=== PATIENT | female | born 1980 | race Caucasian/White ===

== ENCOUNTER 2016-04-26 15:03 | Emergency (ER) | payer OTHER ==
[~2016-04-26] VITALS: Ht 160 cm; Wt 90.0 kg
[~2016-04-26 15:03] MED LIST: ACETAMINOPHN-T1 EACH PO; ADDERALL XR; ADVAIR 100-501 EACH IH; ADVAIR 100/501 DISK IH; ALBUTEROL17 GM IH; AMOXICILLIN500 M1 PO; AMOXICILLIN500 MG PO; ATARAX,VISTARIL25 MG PO; ATARAX10 MG PO; AUGMENTIN875 MG PO; BENADRYL25 MG PO; BENTYL20 MG PO; BONINE25 MG PO; Bariatric vitamin PO; CALCIUM ANTAC1000 MG PO; CARBAMAZEPINE400 MG PO; CATAPRES0.2 MG PO; CELEXA20 MG PO; CEPHALEXIN500 MG PO; CHEWABLE MULTI1 EACH PO; CIPRO500 MG PO; CITALOPRAM HBR20 MG PO; CLONIDINE HCL0.1 MG PO; CROMOLYN S20 MG/2 ML PO; CYANOCOBAL1000 MCG/2 IM; DESYREL100 MG PO; DIAMOX250 MG PO; DICLOFENAC SODI75 MG; DICLOFENAC SODI75 MG PO; DIFLUCAN150 MG PO; DILAUDID2 MG PO; DIOVAN40 MG PO; EFFEXOR XR37.5 MG PO; EFFEXOR75 MG PO; ENDOCET 5-3251 EACH PO; EPIPEN ADU0.3 MG/0.3 IM; FERROUS SULFAT325 MG PO; FIORICET 50-301 EACH PO; FIORICET,ESG1 TABLET PO; FLEXERIL10 MG PO; FLOMAX0.4 MG PO; FORTAMET500 MG PO; GABAPENTIN600 MG PO; GLUCOPHAGE500 MG PO; HYDROXYZINE PAM25 MG PO; INDOCIN25 MG PO; INTAL PO; IRON325 M1 PO; IRON325 MG PO; KEFLEX500 MG PO; KLONOPIN0.5 M1 PO; KLONOPIN1 MG PO; LEVAQUIN750 MG PO; LIQUID B-11000 MCG/1 SC; LODINE400 MG PO; LOVENOX40 MG/0.4 PO; MELATONIN1 MG PO; MELATONIN10 M1 PO; MELATONIN10 M2 PO; METAMUCIL PACKE1 PKT PO; METFORMIN HCL1000 MG PO; METOPROLOL SUCC25 MG PO; METOPROLOL SUCC50 MG PO; MIGRAINE RELIE1 EAC2 PO; MINIPRESS1 MG PO; MOBIC7.5 MG PO; MOTRIN IB200 MG PO; MOTRIN600 MG PO; NAPROSYN-EC500 MG PO; NAPROSYN500 MG PO; NAPROXEN SODIU550 MG PO; NEBULIZER1 EAC1 MC; NEURONTIN600 MG PO; NIZORAL 2% CREA15 GM TP; OMEPRAZOLE20 M2 PO; OMEPRAZOLE20 MG PO; OMEPRAZOLE40 M1 PO; OPANA ER5 MG PO; OXCARBAZEPINE300 MG PO; OXYCODONE HCL10 MG PO; OXYCODONE-APAP1 EACH PO; OXYCODONE5 MG PO; PEN-VEE K,VEET250 MG PO; PEN-VEE K,VEET500 MG PO; PEPCID20 MG PO; PERCOCET 10/1 TABLET PO; PERCOCET 5/31 TABLET PO; PRAZOSIN HCL1 MG PO; PREDNISONE10 MG PO; PREDNISONE20 MG PO; PREVACID30 MG PO; PRILOSEC OTC20 MG PO; PRILOSEC40 MG PO; PROMETHAZINE HC25 M1 PO; PROVENTIL HFA6.7 GM IH; PROVERA,CYCRIN10 MG PO; PriLOSEC PO; REGLAN10 MG PO; REGLAN5 MG PO; ROBITUSSIN100 MG/5 M PO; ROPINIROLE HCL0.5 MG PO; SLEEP AID25 M1 PO; SLEEP AID50 MG PO; TEGRETOL-XR,CA200 MG PO; TEGRETOL-XR,CA400 MG PO; TEGRETOL100 MG PO; TEGRETOL200 MG; TEMAZEPAM15 MG PO; TIZANIDINE HCL4 MG PO; TOPAMAX50 MG PO; TOPIRAMATE25 MG PO; TOPROL XL50 MG PO; TRAMADOL HCL50 MG PO; TRAZODONE HCL50 MG PO; TYLENOL REGULA325 MG PO; TYLENOL WITH C1 EACH PO; ULTRACET1 TABLET PO; ULTRAM50 MG PO; VALIUM2 MG PO; VALIUM5 MG PO; VENLAFAXINE HCL75 M3 PO; VENTOLIN HFA18 GM IH; VIIBRYD40 MG PO; VISTARIL50 MG PO; VITAMIN D-3 401 EACH PO; VITAMIN D400 INTUNI PO; VITAMIN D400 UNI1 PO; VITAMIN D400 UNIT PO; Vitamin B12; XANAX0.25 MG PO; XANAX0.5 MG PO; ZITHROMAX Z-PA250 MG PO; ZOFRAN ODT4 MG PO; ZOFRAN ODT8 MG PO; ZOFRAN4 MG PO; ZZZQUIL25 MG PO; [UNRECOGNIZED DRUG - OTHER] PO
[2016-04-26] MEDS ORDERED: OXYCODONE HCL10 MG PO (15:33)
[2016-04-26] MEDS ORDERED: OMEPRAZOLE20 M2 PO (15:33)
[2016-04-26] MEDS ORDERED: ROPINIROLE HCL0.5 MG PO (15:33)
[2016-04-26] MEDS ORDERED: MOBIC7.5 MG PO (17:39)
[2016-04-26 18:05] VITALS: BP 141/86
== END 2016-04-26 18:07 | disposition home or self-care (01) ==
LOC: EME 15:03
PROC: 2W3TX1Z Immobilization of Left Foot using Splint (ICD-10-PCS; principal; 2016-04-26)
DX: S92.515A Nondisplaced fracture of proximal phalanx of left lesser toe(s), initial encounter for closed fracture (principal); X50.9XXA Other and unspecified overexertion or strenuous movements or postures, initial encounter; Y92.000 Kitchen of unspecified non-institutional (private) residence as the place of occurrence of the external cause
CPT/HCPCS: 73630; 99281; 99283

== ENCOUNTER 2016-04-28 13:12 | Inpatient (IN) | payer OTHER ==
[~2016-04-28] VITALS: Ht 160 cm; Wt 92.1 kg
[2016-04-28 14:21] LABS: EOSINOPHIL (%) 0.1 % (0-5); HEMATOCRIT 35.5 % (36.0-46.0); IMMATURE GRANULOCYTE (%) 0.2 % (0.0-0.7); IMMATURE GRANULOCYTE COUNT 0.2 K/uL; LYMPHOCYTE COUNT 1.4 K/uL (1.0-2.8); MCH 28.2 PG (29.0-34.0); MCHC 32.1 G/DL (30.0-36.0); MCV 87.9 FL (83-99); MEAN PLAT.VOLUME 9.9 uM^3 (9.5-12.4); MONOCYTE (%) 4.7 % (3-12); MONOCYTE COUNT 0.4 K/uL (0-0.8); NEUTROPHIL (%) 77.8 % (45-76); NEUTROPHIL COUNT 6.4 K/uL (1.8-6.4); PLATELET COUNT 213 K/uL (156-360); RBC DIS.WIDTH-CV 12.8 % (11.8-14.6); RBC DIS.WIDTH-SD 40.3 % (39-53); RED BLOOD COUNT 4.04 M/uL (3.80-5.20); WHITE BLOOD COUNT 8.2 K/uL (4.1-10.2)
[2016-04-28 14:32] LABS: CHLORIDE 108 mEq/L (99-109); POTASSIUM 3.5 mEq/L (3.7-5.4); SODIUM 139 mEq/L (136-147)
[2016-04-28 14:34] LABS: GLUCOSE 87 mg/dL (70-99)
[2016-04-28 14:35] LABS: ANION GAP 8 MEQ/L (2-14)
[2016-04-28 14:36] LABS: TOTAL BILIRUBIN 0.5 mg/dL (0.0-1.0)
[2016-04-28 14:37] LABS: SERUM ETHYL ALCOHOL < 10 mg/dL
[2016-04-28 14:38] LABS: GFR ESTIMATE (CALCULATED) > 59 mL/min/
[2016-04-28 14:39] LABS: ALKALINE PHOSPHATASE 135 IU/L (3-129)
[2016-04-28 14:40] LABS: UREA NITROGEN (BUN) 5 mg/dL (9-23)
[2016-04-28 14:41] LABS: SALICYLATE < 5.0 MG/DL (15-30)
[2016-04-28 14:48] LABS: QUANTITATIVE HCG < 4.0 MIU/ML
[2016-04-28 15:59] LABS: COCAINE NEGATIVE (150 ng/mL); METHAMPHETAMINE NEGATIVE (500 ng/mL); PHENCYCLIDINE NEGATIVE (25 ng/mL); THC CANNABINOIDS NEGATIVE (50 ng/mL)
[2016-04-28 16:00] LABS: ADD MEDTOX COMMENT Y; AMPHETAMINE NEGATIVE (500 ng/mL); BARBITURATES NEGATIVE (200 ng/mL); BENZODIAZEPINES PRESUMPTIVE POSITIVE (150 ng/mL); INTERNAL CONTROLS VALID? YES; METHADONE NEGATIVE (200 ng/mL); OPIATES (MORPHINE) PRESUMPTIVE POSITIVE (100 ng/mL); OXYCODONE NEGATIVE (100 ng/mL); PROPOXYPHENE NEGATIVE (300 ng/mL); TRICYCLIC ANTIDEPRESSANTS NEGATIVE (300 ng/mL)
[2016-04-28 16:38] LABS: BENZODIAZEPINES QUANT VALUE 0 NG/ML; OPIATES QUANTITATIVE VALUE 0 NG/ML
[2016-04-28 16:40] LABS: BENZODIAZEPINES, URINE SCREEN Negative (200 ng/mL)
[2016-04-28] MEDS ORDERED: EFFEXOR XR75 MG PO (17:43)
[2016-04-28] MEDS ORDERED: XANAX1 MG PO (17:44)
[2016-04-28] MEDS ORDERED: TOPAMAX100 MG PO (17:45)
[2016-04-28] MEDS ORDERED: PRILOSEC20 MG PO (17:45)
[2016-04-28 20:58] VITALS: BP 156/79
[2016-04-29 08:00] VITALS: BP 138/87
[2016-04-29 16:26] VITALS: BP 160/102
[2016-04-30 07:43] VITALS: BP 125/72
[2016-04-30 15:27] VITALS: BP 117/62
[2016-05-01 08:00] VITALS: BP 131/67
[2016-05-01 15:13] VITALS: BP 123/81
[2016-05-02 07:24] VITALS: BP 140/75
[2016-05-02 15:35] VITALS: BP 133/85
[2016-05-03 08:03] VITALS: BP 116/58
[2016-05-03 16:06] VITALS: BP 132/71
[2016-05-04 07:47] VITALS: BP 109/55
[2016-05-04] MEDS ORDERED: TOPIRAMATE100 MG PO (11:22)
[2016-05-04] MEDS ORDERED: FLUOXETINE HCL20 MG PO (11:22)
[2016-05-04] MEDS ORDERED: ALPRAZOLAM1 MG PO (11:22)
[2016-05-04] MEDS ORDERED: PANTOPRAZOLE SO40 MG PO (11:22)
[2016-05-04] MEDS ORDERED: MELOXICAM7.5 MG PO (11:22)
[2016-05-04] MEDS ORDERED: GABAPENTIN600 MG PO (11:22)
[2016-05-04] MEDS ORDERED: BUTALB-APAP-CA1 EACH PO (11:22)
[2016-05-04] MEDS ORDERED: METOPROLOL SUCC50 MG PO (11:22)
[2016-05-04] MEDS ORDERED: OXCARBAZEPINE300 MG PO (11:22)
== END 2016-05-04 13:58 | disposition home or self-care (01) | DRG 885 ==
LOC: EME → EDBD 13:12 → EME 13:12 → 1WEST 16:46 → EDOF 16:46 → 1WEST 20:26
PROVIDERS: Emergency Medicine
DX: F31.4 Bipolar disorder, current episode depressed, severe, without psychotic features (principal); J45.909 Unspecified asthma, uncomplicated; E11.9 Type 2 diabetes mellitus without complications; K21.9 Gastro-esophageal reflux disease without esophagitis; I10 Essential (primary) hypertension; G89.29 Other chronic pain; T43.212A Poisoning by selective serotonin and norepinephrine reuptake inhibitors, intentional self-harm, initial encounter
CPT/HCPCS: 80053; 84702; 84999; 85025; 90839; 93005; 97150 GO; 97165 GO; 97530 GO; 99281; 99285; G0480

== ENCOUNTER 2017-01-01 15:33 | Emergency (ER) | payer OTHER ==
[~2017-01-01] VITALS: Ht 165.1 cm; Wt 100.1 kg
[~2017-01-01 15:33] MED LIST changes: +ALPRAZOLAM1 MG PO; +BUTALB-APAP-CA1 EACH PO; +EFFEXOR XR75 MG PO; +FLUOXETINE HCL20 MG PO; +MELOXICAM7.5 MG PO; +PANTOPRAZOLE SO40 MG PO; +PRILOSEC20 MG PO; +TOPAMAX100 MG PO; +TOPIRAMATE100 MG PO; +XANAX1 MG PO
[2017-01-01] MEDS ORDERED: INDOCIN50 MG PO (17:51)
[2017-01-01] MEDS ORDERED: AUGMENTIN875 MG PO (17:52)
[2017-01-01 18:26] VITALS: BP 171/103
== END 2017-01-01 18:27 | disposition home or self-care (01) ==
LOC: EME 15:33
PROC: 2W3CX1Z Immobilization of Right Lower Arm using Splint (ICD-10-PCS; principal; 2017-01-01)
DX: S01.511A Laceration without foreign body of lip, initial encounter (principal); S00.83XA Contusion of other part of head, initial encounter; S60.221A Contusion of right hand, initial encounter; S66.911A Strain of unspecified muscle, fascia and tendon at wrist and hand level, right hand, initial encounter; Y04.2XXA Assault by strike against or bumped into by another person, initial encounter; Y07.03 Male partner, perpetrator of maltreatment and neglect; R42 Dizziness and giddiness; Z98.84 Bariatric surgery status
CPT/HCPCS: 73110; 73130; 99281; 99284

== ENCOUNTER 2017-04-04 11:24 | Emergency (ER) | payer OTHER ==
[~2017-04-04] VITALS: Ht 162.6 cm; Wt 97.0 kg
[~2017-04-04 11:24] MED LIST changes: +INDOCIN50 MG PO
[2017-04-04] MEDS ORDERED: MOTRIN800 MG PO (13:37)
[2017-04-04 13:48] VITALS: BP 154/91
== END 2017-04-04 13:52 | disposition home or self-care (01) ==
LOC: EME 11:24
DX: S90.31XA Contusion of right foot, initial encounter (principal); W23.0XXA Caught, crushed, jammed, or pinched between moving objects, initial encounter; Y92.810 Car as the place of occurrence of the external cause; I10 Essential (primary) hypertension; F32.9 Major depressive disorder, single episode, unspecified; Z91.040 Latex allergy status; Z88.6 Allergy status to analgesic agent; Z88.5 Allergy status to narcotic agent; Z88.8 Allergy status to other drugs, medicaments and biological substances
CPT/HCPCS: 73610; 73630; 99281; 99284

== ENCOUNTER 2017-04-13 13:34 | Emergency (ER) | payer OTHER ==
[~2017-04-13] VITALS: Ht 162.6 cm; Wt 99.0 kg
[~2017-04-13 13:34] MED LIST changes: +MOTRIN800 MG PO
[2017-04-13 14:52] VITALS: BP 137/89
== END 2017-04-13 18:25 | disposition left against medical advice (07) ==
LOC: EME 13:34
DX: M79.604 Pain in right leg (principal); M79.605 Pain in left leg; Z53.21 Procedure and treatment not carried out due to patient leaving prior to being seen by health care provider

== ENCOUNTER 2017-07-22 12:18 | Emergency (ER) | payer OTHER ==
[~2017-07-22] VITALS: Ht 160 cm; Wt 86.4 kg
[2017-07-22] MEDS ORDERED: MOTRIN800 MG PO (13:26)
[2017-07-22] MEDS ORDERED: FLEXERIL10 MG PO (13:26)
[2017-07-22] MEDS ORDERED: LIDODERM 5% P1 PATCH TD (13:26)
[2017-07-22 13:38] VITALS: BP 147/100
== END 2017-07-22 13:41 | disposition home or self-care (01) ==
LOC: EME 12:18
DX: S16.1XXA Strain of muscle, fascia and tendon at neck level, initial encounter (principal); M62.838 Other muscle spasm; V43.52XA Car driver injured in collision with other type car in traffic accident, initial encounter; Y92.481 Parking lot as the place of occurrence of the external cause; Z91.040 Latex allergy status; Z88.6 Allergy status to analgesic agent; Z88.5 Allergy status to narcotic agent
CPT/HCPCS: 72040; 99281; 99283

== ENCOUNTER 2017-08-06 16:46 | Emergency (ER) | payer OTHER ==
[~2017-08-06] VITALS: Ht 160 cm; Wt 91.1 kg
[~2017-08-06 16:46] MED LIST changes: +LIDODERM 5% P1 PATCH TD
[2017-08-06 16:54] VITALS: BP 126/76
[2017-08-06] MEDS ORDERED: MOTRIN600 MG PO (19:45)
[2017-08-06] MEDS ORDERED: AMOXICILLIN875 MG PO (19:49)
== END 2017-08-06 20:10 | disposition home or self-care (01) ==
LOC: EME 16:46
DX: K02.9 Dental caries, unspecified (principal); R68.84 Jaw pain; I10 Essential (primary) hypertension; E11.9 Type 2 diabetes mellitus without complications; J45.909 Unspecified asthma, uncomplicated; F32.9 Major depressive disorder, single episode, unspecified; E28.2 Polycystic ovarian syndrome; F41.9 Anxiety disorder, unspecified; Z98.84 Bariatric surgery status; K21.9 Gastro-esophageal reflux disease without esophagitis; Z91.040 Latex allergy status; Z88.6 Allergy status to analgesic agent; Z88.5 Allergy status to narcotic agent; Z87.891 Personal history of nicotine dependence
CPT/HCPCS: 87651 90; 99281; 99283

== ENCOUNTER 2017-08-15 11:35 | Emergency (ER) | payer OTHER ==
[~2017-08-15] VITALS: Ht 165.1 cm; Wt 89.4 kg
[~2017-08-15 11:35] MED LIST changes: +AMOXICILLIN875 MG PO
[2017-08-15 12:52] LABS: HEMATOCRIT 31.6 % (36.0-46.0); HEMOGLOBIN 10.3 G/DL (11.9-15.5); MCH 29.3 PG (29.0-34.0); MCHC 32.6 G/DL (30.0-36.0); MCV 89.8 FL (83-99); PLATELET COUNT 187 K/uL (156-360); RBC DIS.WIDTH-CV 13.5 % (11.8-14.6); RBC DIS.WIDTH-SD 44.1 % (39-53); RED BLOOD COUNT 3.52 M/uL (3.80-5.20); WHITE BLOOD COUNT 5.1 K/uL (4.1-10.2)
[2017-08-15 13:05] LABS: CHLORIDE 106 mEq/L (99-109)
[2017-08-15 13:06] LABS: SODIUM 138 mEq/L (136-147)
[2017-08-15 13:07] LABS: GLUCOSE 106 mg/dL (70-99)
[2017-08-15 13:11] LABS: CREATININE 0.7 mg/dL (0.6-1.3); GFR ESTIMATE (CALCULATED) > 59 mL/min/
[2017-08-15 13:12] LABS: UREA NITROGEN (BUN) 10 mg/dL (9-23)
[2017-08-15 13:13] LABS: TROP-I INTERPRETATION NEGATIVE; TROPONIN-I 0.01 ng/mL (0.0-0.30)
[2017-08-15 13:42] LABS: SERUM ETHYL ALCOHOL < 10 mg/dL
[2017-08-15] MEDS ORDERED: ATARAX,VISTARIL25 MG PO (16:33)
[2017-08-15 17:06] VITALS: BP 164/80
== END 2017-08-15 17:07 | disposition home or self-care (01) ==
LOC: EME 11:35
DX: F41.9 Anxiety disorder, unspecified (principal); F43.23 Adjustment disorder with mixed anxiety and depressed mood; F31.32 Bipolar disorder, current episode depressed, moderate; J45.909 Unspecified asthma, uncomplicated; E11.9 Type 2 diabetes mellitus without complications; I10 Essential (primary) hypertension; K21.9 Gastro-esophageal reflux disease without esophagitis; G43.909 Migraine, unspecified, not intractable, without status migrainosus; Z87.442 Personal history of urinary calculi; Z90.49 Acquired absence of other specified parts of digestive tract; Z98.84 Bariatric surgery status; Z91.040 Latex allergy status; Z88.6 Allergy status to analgesic agent; Z88.5 Allergy status to narcotic agent; Z88.8 Allergy status to other drugs, medicaments and biological substances
CPT/HCPCS: 71046; 80048; 84484; 85027; 90839; 93005; 99281; 99284; G0480; Q0177

== ENCOUNTER 2017-09-22 13:39 | Emergency (ER) | payer OTHER ==
[~2017-09-22] VITALS: Ht 160 cm; Wt 83.4 kg
[2017-09-22 14:32] LABS: HEMOGLOBIN 11.7 G/DL (11.9-15.5); MCH 28.6 PG (29.0-34.0); MCHC 31.6 G/DL (30.0-36.0); MCV 90.5 FL (83-99); PLATELET COUNT 376 K/uL (156-360); RBC DIS.WIDTH-CV 13.6 % (11.8-14.6); RBC DIS.WIDTH-SD 44.8 % (39-53); RED BLOOD COUNT 4.09 M/uL (3.80-5.20); WHITE BLOOD COUNT 9.2 K/uL (4.1-10.2)
[2017-09-22 14:40] LABS: ALBUMIN 4.1 g/dL (3.2-4.8); CHLORIDE 108 mEq/L (99-109); POTASSIUM 3.9 mEq/L (3.7-5.4); SODIUM 139 mEq/L (136-147)
[2017-09-22 14:42] LABS: GLUCOSE 75 mg/dL (70-99)
[2017-09-22 14:43] LABS: TOTAL PROTEIN 6.7 g/dL (6.4-8.3)
[2017-09-22 14:44] LABS: TOTAL BILIRUBIN 0.4 mg/dL (0.0-1.0)
[2017-09-22 14:46] LABS: CREATININE 0.8 mg/dL (0.6-1.3); GFR ESTIMATE (CALCULATED) > 59 mL/min/
[2017-09-22 14:47] LABS: UREA NITROGEN (BUN) 13 mg/dL (9-23)
[2017-09-22 14:48] LABS: AST (GOT) 18 IU/L (2-34)
[2017-09-22 14:49] LABS: ALT (GPT) 9 IU/L (3-49)
[2017-09-22 14:55] LABS: QUANTITATIVE HCG < 4.0 MIU/ML
[2017-09-22 14:59] LABS: LIPASE 43 U/L (1.0-51.0)
[2017-09-22 15:18] LABS: ALKALINE PHOSPHATASE 79 IU/L (3-129)
[2017-09-22 16:18] LABS: APPEARANCE CLEAR ((CLEAR)); BILIRUBIN NEGATIVE; BLOOD NEGATIVE; COLOR YELLOW ((YELLOW)); GLUCOSE (STRIP) NEGATIVE; KETONES NEGATIVE; LEUKOCYTES NEGATIVE; NITRITE NEGATIVE; PROTEIN (STRIP) NEGATIVE; SPECIFIC GRAVITY 1.017 (1.000-1.030); UCUL ADDED? NO; UROBILINOGEN 0.2 MG/DL (0.2-1.0)
[2017-09-22] MEDS ORDERED: BENTYL20 MG PO (18:27)
[2017-09-22 19:07] VITALS: BP 124/72
== END 2017-09-22 19:08 | disposition home or self-care (01) ==
LOC: EME 13:39
DX: R10.32 Left lower quadrant pain (principal); Z98.84 Bariatric surgery status; Z87.442 Personal history of urinary calculi; E11.9 Type 2 diabetes mellitus without complications; I10 Essential (primary) hypertension; F41.9 Anxiety disorder, unspecified; K21.9 Gastro-esophageal reflux disease without esophagitis; J45.909 Unspecified asthma, uncomplicated; F32.9 Major depressive disorder, single episode, unspecified; Z91.040 Latex allergy status; Z88.6 Allergy status to analgesic agent; Z88.5 Allergy status to narcotic agent
CPT/HCPCS: 74177; 80053; 81003; 83690; 84702; 85027; 99281; 99285; J1885; J7030